=== PATIENT | female | born 1985 | race Caucasian/White ===

== ENCOUNTER 2017-04-29 10:32 | Emergency (ER) | payer MEDICAID ==
[2017-04-29 10:39] VITALS: BP 124/82
== END 2017-04-29 11:27 | disposition home or self-care (01) ==
LOC: ED 10:32
DX: O26.891 Other specified pregnancy related conditions, first trimester (principal); H10.211 Acute toxic conjunctivitis, right eye; Z3A.08 8 weeks gestation of pregnancy

== ENCOUNTER 2017-11-09 21:33 | Emergency (ER) | payer MEDICAID ==
[~2017-11-09] VITALS: Ht 157.5 cm; Wt 70.8 kg
[2017-11-09 21:59] VITALS: Ht 157.5 cm; Wt 70.8 kg
[2017-11-09 23:29] VITALS: BP 128/78
== END 2017-11-09 23:29 | disposition home or self-care (01) ==
LOC: ED 21:33
DX: O26.893 Other specified pregnancy related conditions, third trimester (principal); L02.221 Furuncle of abdominal wall; Z3A.00 Weeks of gestation of pregnancy not specified
CPT/HCPCS: J0690